=== PATIENT | female | born 1965 | race Caucasian/White ===

== ENCOUNTER 2018-10-10 10:37 | Emergency (ER) | payer OTHER ==
[2018-10-10] MEDS ORDERED: MORPHINE 4 MG/ML SYR ONE ×2 (11:27→13:36)
[2018-10-10] MEDS ORDERED: ONDANSETRON 4 MG/2 ML VIAL ONE ×2 (11:27→13:39)
--- NOTE | 2018-10-10 11:40 | RAD REPORT ---
EXAM DESCRIPTION: US - Abdomen Exam Limited - 10/10/2018 11:26 am CLINICAL HISTORY: rule out cholecystitis Right upper quadrant pain COMPARISON: No comparisons FINDINGS: The gallbladder demonstrates contraction with multiple gallstones present. Accurate assess ment gallbladder wall thickness is not possible in this contracted state. The common bile duct is nor mal measuring 4 mm. The liver demonstrates no findings of intrahepatic biliary dilatation. IMPRESSION: Contracted gallbladder containing multiple shadowing stones.
[2018-10-10 11:50] LABS: Absolute Lymphocytes (CBC) 1.4 K/uL (0.7-4.9); Absolute Monocytes 0.3 K/uL (0.1-1.3); Absolute Neutrophil 5.6 K/uL (1.8-8.0); Basophils % 0.6 % (0-1.3); Eosinophils % 0.9 % (0-4.4); Hematocrit 40.5 % (36.0-45.0); Lymphocytes % 18.7 % (15.3-44.8); MPV 10.1 fL (7.6-11.3); Monocytes % 3.6 % (3.3-12.3); RBC Red Blood Cell Count 4.56 M/uL (3.86-4.86)
[2018-10-10 12:17] LABS: Urine Blood NEGATIVE (NEG); Urine Glucose NEGATIVE (NEG); Urine Protein 1+ (NEG); Urine pH 8.5 (5.0-7.0)
[2018-10-10 12:36] LABS: Albumin 3.9 g/dL (3.4-5.0); Bilirubin Direct 0.4 mg/dL (0-0.2); Bilirubin Total 0.8 mg/dL (0.2-1.0); Potassium 3.5 mmol/L (3.5-5.1); Protein, Total 8.2 g/dL (6.4-8.2)
--- NOTE | 2018-10-10 13:49 | RAD REPORT ---
EXAM DESCRIPTION: CTAbdomen Pelvis W Contrast - 10/10/2018 1:34 pm CLINICAL HISTORY: Abdominal pain. ABD PAIN COMPARISON: No comparisons TECHNIQUE: Biphasic CT imaging of the abdomen and pelvis was performed with 100 ml non-ionic IV cont rast. All CT scans are performed using dose optimization technique as appropriate and may include automated exposure control or mA/KV adjustment according to patient size. FINDINGS: The lung bases are clear.Moderate hiatal hernia. The gallbladder appears contracted with wall thickening and an irregular appearance. Stones are likel y present within the gallbladder. The common bile duct and intrahepatic biliary tree is mildly promin ent. No aggressive liver of masses seen. The spleen, pancreas, adrenal glands and kidneys are within normal limits. No bowel obstruction, free air, free fluid or abscess. The appendix is normal. No evidence of signi ficant lymphadenopathy. No suspicious bony findings. IMPRESSION: Contracted, thickened and somewhat irregular appearance to the gallbladder with gallblad leonard stones suspected. Mild intrahepatic biliary tree prominence is present.
--- NOTE | 2018-10-10 14:59 | EDPHYS ---
Physician Documentation [facility] Name: Kalyn Harmon Age: 53 yrs Sex: Female : 1965 Arrival Date: 10/10/2018 Time: 10:42 Bed 16 Private MD: None, None ED Physician Pablo Santiago HPI: 10/10 11:03 This 53 yrs old Female presents to ER via Ambulatory with complaints of rn Abdominal Pain. 11:03 The patient presents with abdominal pain in the epigastric area, in the right upper rn quadrant. Onset: The symptoms/episode began/occurred this morning. The symptoms do not radiate. Associated signs and symptoms: Pertinent positives: nausea, Pertinent negatives: anorexia, blood in stools, diarrhea, dysuria, fever, shortness of breath, vomiting. The symptoms are described as achy. Modifying factors: The symptoms are alleviated by nothing, the symptoms are aggravated by touching the area. Severity of pain: At its worst the pain was moderate in the emergency department the pain is unchanged. The patient has not experienced similar symptoms in the past. Reports abd pain that began last night but worse this AM, + nausea, no vomiting, no diarrhea. No fever. No trauma. Denies chest pain and sob. . 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 - Family history:: not pertinent. - Social history:: Smoking status: Patient/guardian denies using tobacco. - Ebola Screening: : No symptoms or risks identified at this time. - Hospitalizations: : No recent hospitalization is reported. ROS: 11:03 Constitutional: Negative for fever, chills, and weight loss, Neck: Negative for injury, rn pain, and swelling, Cardiovascular: Negative for chest pain, palpitations, and edema, Respiratory: Negative for shortness of breath, cough, wheezing, and pleuritic chest pain, Abdomen/GI: + abdominal pain and nausea, negative for diarrhea Back: Negative for injury and pain, : Negative for injury, bleeding, discharge, and swelling, MS/Extremity: Negative for injury and deformity, Skin: Negative for injury, rash, and discoloration, Neuro: Negative for headache, weakness, numbness, tingling, and seizure. Exam: 11:03 Constitutional: This is a well developed, well nourished patient who is awake, alert, rn appears uncomfortable Head/Face: Normocephalic, atraumatic. ENT: MMM Respiratory: No increased work of breathing, no retractions or nasal flaring. Abdomen/GI: soft, + epigastric and RUQ tenderness, no rebound Skin: Warm, dry MS/ Extremity: Pulses equal, no cyanosis. Neurovascular intact. Full, normal range of motion. Equal circumference. Neuro: Awake and alert, GCS 15, oriented to person, place, time, and situation. Cranial nerves II-XII grossly intact. Motor strength 5/5 in all extremities. Sensory grossly intact. Antalgic gait. Vital Signs: 10:46 BP 145 / 67; Pulse 80; Resp 18; Temp 97.7(O); Pulse Ox 100% on R/A; Weight 69.4 kg; hj Height 5 ft. 6 in. (167.64 cm); Pain 10/10; 11:38 BP 132 / 68; Pulse 76; Resp 18; Pulse Ox 100% on R/A; ph 12:45 BP 126 / 70; Pulse 75; Resp 18; Pulse Ox 99% on R/A; Pain 6/10; ph 15:08 BP 146 / 83; Pulse 80; Resp 18; Temp 98.1; Pulse Ox 100% on R/A; ph 17:37 BP 141 / 78; Pulse 76; Resp 18; Temp 98.0; Pulse Ox 99% on R/A; ph 10:46 Body Mass Index 24.69 (69.40 kg, 167.64 cm) MDM: 10:54 Patient medically screened. rn 14:29 ED course: Consulted with Dr. Rueda, given elevated LFTs and prominent CBD/intrahepatic rn ducts recommends transfer given we do not have GI for consultation if possible choledocholithiasis. . 14:55 Differential diagnosis: cholecystitis, Cholelithiasis, non-specific abd pain, rn pancreatitis, choledocholithiasis. Data reviewed: vital signs, nurses notes, lab test result(s), radiologic studies, CT scan, ultrasound, and as a result, I will admit patient. Counseling: I had a detailed discussion with the patient and/or guardian regarding: the historical points, exam findings, and any diagnostic results supporting the discharge/admit diagnosis, lab results, radiology results, the need to transfer to another facility, [facility] does not immediately have the required specialist. Response to treatment: the patient's symptoms have mildly improved after treatment, and as a result, I will admit patient. ED course: Accepted for transfer at [facility] for GI evaluation and ERCP.. 10/10 10:59 Order name: Basic Metabolic Panel; Complete Time: 12:38 rn 10/10 10:59 Order name: CBC with Diff; Complete Time: 12:31 rn 10/10 10:59 Order name: Hepatic Function; Complete Time: 12:38 rn 10/10 10:59 Order name: Lipase; Complete Time: 12:38 rn 10/10 11:22 Order name: Urine Dipstick--Ancillary (enter results); Complete Time: 12:31 bd 10/10 11:22 Order name: Urine --Ancillary (enter results); Complete Time: 12:31 bd 10/10 10:59 Order name: US Abdomen Limited; Complete Time: 11:43 rn 10/10 11:44 Order name: CT Abd/Pelvis - PO and IV Contrast; Complete Time: 13:50 rn 10/10 10:59 Order name: IV Saline Lock; Complete Time: 11:20 rn 10/10 10:59 Order name: Labs collected and sent; Complete Time: 11:20 rn 10/10 10:59 Order name: EKG; Complete Time: 11:00 rn 10/10 10:59 Order name: EKG - Nurse/Tech; Complete Time: 15:08 rn 10/10 10:59 Order name: NPO; Complete Time: 11:08 rn Administered Medications: 11:14 Drug: Zofran 4 mg Route: IVP; Site: left antecubital; ph 11:34 Follow up: Response: No adverse reaction ph 11:16 Drug: morphine 4 mg Route: IVP; Site: left antecubital; ph 11:33 Follow up: Response: No adverse reaction; Pain is decreased ph 13:26 Drug: morphine 4 mg Route: IVP; Site: left antecubital; ph 14:00 Follow up: Response: No adverse reaction; Pain is decreased ph 13:27 Drug: Zofran 4 mg Route: IVP; Site: left antecubital; ph 14:00 Follow up: Response: No adverse reaction; Nausea is decreased ph 15:07 Drug: Phenergan 12.5 mg Route: IVP; Site: left antecubital; ph 15:28 Follow up: Response: No adverse reaction; Nausea is decreased ph 16:00 Drug: Rocephin - (cefTRIAXone) 1 grams Route: IVPB; Infused Over: 30 mins; Site: left ph antecubital; 16:04 Follow up: Response: No adverse reaction; IV Status: Completed infusion ph 16:04 Drug: Flagyl 500 mg Volume: 100 ml; Route: IVPB; Rate: 200 ml/hr; Infused Over: 30 ph mins; Site: left antecubital; Disposition: 10/10/18 14:58 Transfer ordered to [facility]. Diagnosis are Cholelithiasis, Biliary tree dilatation. - Reason for transfer: Higher level of care. - Accepting physician is . - Condition is Stable. - Problem is new. - Symptoms have improved. Signatures: Dispatcher [employer] EDMS Pablo Santiago MD MD rn Hall, Patricia, RN RN Tenzin Merritt RN RN Corrections: (The following items were deleted from the chart) 17:58 14:58 10/10/2018 14:58 Transfer ordered to [facility]. Diagnosis is ph Cholelithiasis; Biliary tree dilatation. Reason for transfer: Higher level of care. Accepting physician is . Condition is Stable. Problem is new. Symptoms have improved. rn
--- NOTE | 2018-10-10 14:59 | ER ---
Nurse's Notes [facility] Name: Kalyn Harmon Age: 53 yrs Sex: Female : 1965 Arrival Date: 10/10/2018 Time: 10:42 Bed 16 Private MD: None, None Diagnosis: Cholelithiasis;Biliary tree dilatation Presentation: 10/10 10:44 Presenting complaint: Patient states: i had this severe pain on my abdomen, more on the hj upper R and upper L, reports nausea, denies vomiting; denies diarrhea; pain 10/10;. Transition of care: patient was not received from another setting of care. Onset of symptoms was October 10, 2018. Risk Assessment: Do you want to hurt yourself or someone else? Patient reports no desire to harm self or others. Initial Sepsis Screen: Does the patient meet any 2 criteria? No. Patient's initial sepsis screen is negative. Does the patient have a suspected source of infection? No. Patient's initial sepsis screen is negative. Care prior to arrival: None. 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 - Family history:: not pertinent. - Social history:: Smoking status: Patient/guardian denies using tobacco. - Ebola Screening: : No symptoms or risks identified at this time. - Hospitalizations: : No recent hospitalization is reported. Screenin:37 Abuse screen: Denies threats or abuse. Denies injuries from another. Nutritional ph screening: No deficits noted. Tuberculosis screening: No symptoms or risk factors identified. Fall Risk None identified. Assessment: 11:15 General: Appears in no apparent distress. uncomfortable, slender, well groomed, ph Behavior is calm, cooperative, appropriate for age, Denies fever. Pain: Complains of pain in epigastric area. Neuro: Level of Consciousness is awake, alert, obeys commands, Oriented to person, place, time, situation. Cardiovascular: Capillary refill < 3 seconds in bilateral fingers. Respiratory: Airway is patent Respiratory effort is even, unlabored, Respiratory pattern is regular, symmetrical. GI: Abdomen is flat, non-distended, Bowel sounds present X 4 quads. Abd is soft X 4 quads Abdomen is tender to palpation in epigastric area, right upper quadrant and left upper quadrant Reports upper abdominal pain, epigastric pain, nausea, Patient currently denies diarrhea, vomiting. : No signs and/or symptoms were reported regarding the genitourinary system. Derm: Skin is intact, is healthy with good turgor, Skin is pink, warm \T\ dry. Musculoskeletal: Circulation, motion, and sensation intact. Range of motion: intact in all extremities. 11:30 Reassessment: Pt reports that pain has decreased to 6/10 and denies nausea, awaiting ph lab and US results. 12:15 Reassessment: Pt completed PO contrast, CT notified. ph 12:40 Reassessment: Patient appears in no apparent distress at this time. Patient and/or ph family updated on plan of care and expected duration. Pain level reassessed. Patient is alert, oriented x 3, equal unlabored respirations, skin warm/dry/pink. Pt resting quietly, awaiting CT scan. 13:30 Reassessment: Patient appears in no apparent distress at this time. Patient and/or ph family updated on plan of care and expected duration. Pain level reassessed. Patient is alert, oriented x 3, equal unlabored respirations, skin warm/dry/pink. Pt c/o pain 8/10, IV pain meds given, pt taken to CT via wheelchair. 14:15 Reassessment: Patient appears in no apparent distress at this time. Patient and/or ph family updated on plan of care and expected duration. Pain level reassessed. Patient is alert, oriented x 3, equal unlabored respirations, skin warm/dry/pink. Dr Santiago at bedside to speak w/ pt. 16:16 Reassessment: Patient appears in no apparent distress at this time. Patient and/or ph family updated on plan of care and expected duration. Pain level reassessed. Patient is alert, oriented x 3, equal unlabored respirations, skin warm/dry/pink. Pt rates pain 4/10 and denies nausea at this time, attempted to call report to [facility], receiving nurse unavailable, asked to call back in 10 min. 17:45 Reassessment: Patient appears in no apparent distress at this time. Patient and/or ph family updated on plan of care and expected duration. Pain level reassessed. Patient is alert, oriented x 3, equal unlabored respirations, skin warm/dry/pink. [facility] at bedside, report given to Amy ZHU, pt transferred to [facility]. Vital Signs: 10:46 BP 145 / 67; Pulse 80; Resp 18; Temp 97.7(O); Pulse Ox 100% on R/A; Weight 69.4 kg; hj Height 5 ft. 6 in. (167.64 cm); Pain 10/10; 11:38 BP 132 / 68; Pulse 76; Resp 18; Pulse Ox 100% on R/A; ph 12:45 BP 126 / 70; Pulse 75; Resp 18; Pulse Ox 99% on R/A; Pain 6/10; ph 15:08 BP 146 / 83; Pulse 80; Resp 18; Temp 98.1; Pulse Ox 100% on R/A; ph 17:37 BP 141 / 78; Pulse 76; Resp 18; Temp 98.0; Pulse Ox 99% on R/A; ph 10:46 Body Mass Index 24.69 (69.40 kg, 167.64 cm) hj ED Course: 10:42 Patient arrived in ED. mr 10:42 None, None is Private Physician. mr 10:45 Triage completed. hj 10:48 Arm band placed on right wrist. hj 10:54 Pablo Santiago MD is Attending Physician. rn 11:06 Shani Henriquez RN is Primary Nurse. ph 11:11 Initial lab(s) drawn, by ca, sent to lab. Inserted saline lock: 20 gauge in left dh3 antecubital area, using aseptic technique. Blood collected. 11:20 Urine collected: clean catch specimen, clear. dh3 11:29 US Abdomen Limited In Process Unspecified. EDMS 11:37 Patient has correct armband on for positive identification. Bed in low position. Call ph light in reach. Side rails up X 1. Pulse ox on. NIBP on. Door closed. Noise minimized. Warm blanket given. Head of bed elevated. 13:31 CT completed. Patient tolerated procedure well. Patient moved to CT via wheelchair. sj Patient moved back from CT. 13:36 CT Abd/Pelvis - PO and IV Contrast In Process Unspecified. EDMS 18:00 No provider procedures requiring assistance completed. Patient transferred, IV remains ph in place. Administered Medications: 11:14 Drug: Zofran 4 mg Route: IVP; Site: left antecubital; ph 11:34 Follow up: Response: No adverse reaction ph 11:16 Drug: morphine 4 mg Route: IVP; Site: left antecubital; ph 11:33 Follow up: Response: No adverse reaction; Pain is decreased ph 13:26 Drug: morphine 4 mg Route: IVP; Site: left antecubital; ph 14:00 Follow up: Response: No adverse reaction; Pain is decreased ph 13:27 Drug: Zofran 4 mg Route: IVP; Site: left antecubital; ph 14:00 Follow up: Response: No adverse reaction; Nausea is decreased ph 15:07 Drug: Phenergan 12.5 mg Route: IVP; Site: left antecubital; ph 15:28 Follow up: Response: No adverse reaction; Nausea is decreased ph 16:00 Drug: Rocephin - (cefTRIAXone) 1 grams Route: IVPB; Infused Over: 30 mins; Site: left ph antecubital; 16:04 Follow up: Response: No adverse reaction; IV Status: Completed infusion ph 16:04 Drug: Flagyl 500 mg Volume: 100 ml; Route: IVPB; Rate: 200 ml/hr; Infused Over: 30 ph mins; Site: left antecubital; Outcome: 14:58 ER care complete, transfer ordered by . rn 17:58 Patient left the ED. ph 17:58 Transferred by ground EMS [place] to [facility], Transfer form ph completed. X-rays sent w/ patient. 17:58 Condition: stable Signatures: Dispatcher [employer] EDWV Cade Sayda EfrainAna Roman, MD MD rn Hall, Patricia, RN RN ph Joaquin, Henry, RN RN hj Herrera, [facility] Corrections: (The following items were deleted from the chart) 10:48 10:46 Pulse 80bpm; Resp 18bpm; Pulse Ox 100% RA; Temp 97.7F Oral; 69.4 kg; Height 5 ft. hj 6 in.; BMI: 24.6; Pain 10/10; hj
[2018-10-10] MEDS ORDERED: PROMETHAZINE 25 MG/ML VIAL ONE (15:16)
--- NOTE | 2018-10-10 15:56 | EKG ---
Test Date: 2018-10-10 Test Time: 11:38:32 Zumba Instructor: SAMMI MEASUREMENT RESULTS: Intervals: Rate: 68 WA: 170 QRSD: 76 QT: 422 QTc: 448 Martin: P: 59 WA: 170 QRS: -36 T: 58 INTERPRETIVE STATEMENTS: Normal sinus rhythm Left axis deviation Abnormal ECG No previous ECG available for comparison Electronically Signed On 10-10-18 15:55:35 CDT by Goran Roche
[2018-10-10] MEDS ORDERED: CEFTRIAXONE/SWI 1gm 1 GM/10 ML SYR ONE (16:06)
[2018-10-10] MEDS ORDERED: METRONIDAZOLE 500mg IVPB 500 MG/100 ML BAG IV ONE (16:06)
== END 2018-10-10 17:58 | disposition short-term general hospital (02) ==
LOC: ER 10:37
DX: K80.20 Calculus of gallbladder without cholecystitis without obstruction (principal); K83.8 Other specified diseases of biliary tract
CPT/HCPCS: 36415; 74177; 76705; 80048; 80076; 81003; 81025; 83690; 85025; 93005; 96374; 96375; 99285; J0696; J2405; J2550; Q9967